=== PATIENT | female | born 1945 | race Two or more races ===

== ENCOUNTER 2022-05-14 14:17 | Emergency (ER) | payer OTHER ==
[~2022-05-14] VITALS: Ht 152.4 cm; Wt 54.4 kg
[2022-05-15] MEDS ORDERED: VASOTEC5 MG PO (00:13)
== END 2022-05-15 00:30 | disposition home or self-care (01) ==
LOC: ER 14:17
DX: I10 Essential (primary) hypertension (principal); M54.50 Low back pain, unspecified; Z88.8 Allergy status to other drugs, medicaments and biological substances; Z20.822 Contact with and (suspected) exposure to COVID-19